=== PATIENT | female | born 1975 | race Caucasian/White ===

== ENCOUNTER 2016-11-15 05:32 | Emergency (ER) | payer OTHER ==
[~2016-11-15] VITALS: Ht 170.2 cm; Wt 63.1 kg
[~2016-11-15 05:32] MED LIST: CLINDAMYCIN HC300 MG PO; Colace PO; ENDOCET 5-3251 EACH PO; LORTAB 5-325 M1 EACH PO; MOTRIN600 MG PO; Motrin PO; Ritalin SR, Metadate PO; THERAGRAN1 TABLET PO; Zofran PO
[2016-11-15 05:53] LABS: HEMATOCRIT 37.4 % (36.0-46.0); MCH 30.6 PG (29.0-34.0); MCHC 33.7 G/DL (30.0-36.0); MCV 90.8 FL (83-99); MEAN PLAT.VOLUME 11.1 uM^3 (9.5-12.4); PLATELET COUNT 132 K/uL (156-360); RBC DIS.WIDTH-CV 12.2 % (11.8-14.6); RBC DIS.WIDTH-SD 40.9 % (39-53); RED BLOOD COUNT 4.12 M/uL (3.80-5.20); WHITE BLOOD COUNT 4.2 K/uL (4.1-10.2)
[2016-11-15 06:10] LABS: CHLORIDE 105 mEq/L (99-109); SODIUM 139 mEq/L (136-147)
[2016-11-15 06:12] LABS: GLUCOSE 108 mg/dL (70-99)
[2016-11-15 06:13] LABS: ANION GAP 9 MEQ/L (2-14)
[2016-11-15 06:14] LABS: TOTAL BILIRUBIN 0.4 mg/dL (0.0-1.0)
[2016-11-15 06:15] LABS: ALKALINE PHOSPHATASE 43 IU/L (3-129)
[2016-11-15 06:16] LABS: GFR ESTIMATE (CALCULATED) > 59 mL/min/
[2016-11-15 06:17] LABS: UREA NITROGEN (BUN) 10 mg/dL (9-23)
[2016-11-15 06:19] LABS: LIPASE 28 U/L (1.0-51.0)
[2016-11-15 06:44] LABS: ADD MIUA? NO; BILIRUBIN NEGATIVE; BLOOD NEGATIVE; COLOR YELLOW ((YELLOW)); GLUCOSE (STRIP) NEGATIVE; KETONES NEGATIVE; LEUKOCYTES NEGATIVE; NITRITE NEGATIVE; PROTEIN (STRIP) NEGATIVE; SPECIFIC GRAVITY 1.012 (1.000-1.030); UCUL ADDED? NO; UROBILINOGEN 0.2 MG/DL (0.2-1.0)
[2016-11-15] MEDS ORDERED: TYLENOL WITH C1 EACH PO (09:48)
[2016-11-15 10:05] VITALS: BP 102/70
== END 2016-11-15 10:06 | disposition home or self-care (01) ==
LOC: EME 05:32
PROVIDERS: Emergency Medicine
DX: R10.9 Unspecified abdominal pain (principal); Z87.442 Personal history of urinary calculi; Z87.440 Personal history of urinary (tract) infections; J45.909 Unspecified asthma, uncomplicated
CPT/HCPCS: 74176; 76856; 80053; 81003; 83690; 85027; 99281; 99284; J1885; J2405; J7030

== ENCOUNTER 2016-11-29 06:26 | Day surgery (SDC) | payer OTHER ==
[~2016-11-29] VITALS: Ht 165.1 cm; Wt 64.0 kg
[~2016-11-29 06:26] MED LIST changes: +ADVIL,NUPRIN,M200 MG PO; +PERCOCET 5/31 TABLET PO; +TYLENOL WITH C1 EACH PO; +XANAX0.25 MG PO
[2016-11-29 07:11] LABS: EOSINOPHIL (%) 2.1 % (0-5); EOSINOPHIL COUNT 0.1 K/uL (0-0.3); HEMATOCRIT 36.2 % (36.0-46.0); IMMATURE GRANULOCYTE (%) 0.2 % (0.0-0.7); INSTRUMENT ABS NEUTROPHIL CT 3.4 K/uL; LYMPHOCYTE COUNT 1.4 K/uL (1.0-2.8); MCHC 33.1 G/DL (30.0-36.0); MCV 90.5 FL (83-99); MEAN PLAT.VOLUME 11.1 uM^3 (9.5-12.4); MONOCYTE (%) 6.1 % (3-12); MONOCYTE COUNT 0.3 K/uL (0-0.8); NEUTROPHIL (%) 64.1 % (45-76); NEUTROPHIL COUNT 3.4 K/uL (1.8-6.4); PLATELET COUNT 168 K/uL (156-360); RBC DIS.WIDTH-CV 12.5 % (11.8-14.6); WHITE BLOOD COUNT 5.3 K/uL (4.1-10.2)
[2016-11-29 07:52] VITALS: BP 100/62
[2016-11-29] MEDS ORDERED: PERCOCET 5/31 TABLET PO (08:03)
[2016-11-29] MEDS ORDERED: MOTRIN800 MG PO (08:03)
[2016-11-29 11:45] VITALS: BP 118/67
[2016-11-29 12:59] VITALS: BP 118/68
[2016-11-29 14:09] VITALS: BP 103/61
== END 2016-11-29 14:30 | disposition home or self-care (01) ==
LOC: SDC 06:26
PROVIDERS: Obstetrics & Gynecology
DX: N83.12 Corpus luteum cyst of left ovary (principal); N80.1 Endometriosis of ovary; N89.5 Stricture and atresia of vagina; N73.6 Female pelvic peritoneal adhesions (postinfective); N80.3 Endometriosis of pelvic peritoneum; J45.909 Unspecified asthma, uncomplicated
CPT/HCPCS: 85025; 86900; 86901; 88305; J0690; J1170; J1885; J2250; J3010; S0020